=== PATIENT | male | born 1990 | race American Indian/Alaskan Native ===

== ENCOUNTER 2019-09-08 20:42 | Emergency (ER) | payer SELFPAY ==
[2019-09-08 23:37] LABS: Basophils # (Auto) 0.1 K/mm3 (0.0-0.1); Basophils % (Auto) 0.9 % (0.0-1.8); Eosinophils # (Auto) 0.1 K/mm3 (0.0-0.4); Eosinophils % (Auto) 1.4 % (0.0-4.3); Hematocrit 33.8 % (35.5-45.6); Hemoglobin 11.4 gm/dl (11.8-15.2); Lymphocytes # (Auto) 1.9 K/mm3 (1.2-5.4); Lymphocytes % (Auto) 27.8 % (13.4-35.0); Mean Corpuscular HGB Conc 34 % (32-34); Mean Corpuscular Volume 86 fl (84-94); Monocytes # (Auto) 0.9 K/mm3 (0.0-0.8); Monocytes % (Auto) 13.4 % (0.0-7.3); Platelet Count 277 K/mm3 (140-440); Red Blood Count 3.94 M/mm3 (3.65-5.03)
[2019-09-08 23:52] LABS: Bilirubin,Urine NEG (Negative); Blood,Urine NEG (Negative); Color,Urine Yellow (Yellow); Protein,Urine <15 mg/dL mg/dL (Negative); WBC,Urine < 1.0 /HPF (0.0-6.0)
[2019-09-09 00:04] LABS: Alanine Aminotransferase 11 units/L (7-56); Albumin 3.6 g/dL (3.9-5); BUN/Creatinine Ratio 10; Blood Urea Nitrogen 8 mg/dL (9-20); Calcium 8.8 mg/dL (8.4-10.2); Hemolysis Index 2
[2019-09-09] MEDS ORDERED: IBUPROFEN 800 MG TAB PO ONE (01:45)
--- NOTE | 2019-09-09 01:48 | Emergency Department Report ---
ED Abdominal Pain HPI - General Chief Complaint: Abdominal Pain Stated Complaint: ABDOMINAL PAIN Time Seen by Provider: 09/09/19 01:13 Source: patient Mode of arrival: Ambulatory Limitations: No Limitations - History of Present Illness Initial Comments: This is a 29-year-old male with a medical history of HIV on antivirals who presents who presents the ED complaining of right upper quadrant abdominal pain for the past 4 days. Patient states pain is usually sharp in nature. Is intermittent. Patient is also complaining of constipation and states his last bowel movement was earlier today. Patient denies nausea vomiting recent unusual food, dysuria fever, chills, MD Complaint: abdominal pain - Related Data Previous Rx's Medication Instructions Recorded Last Taken Type traMADoL [Ultram] 50 mg PO Q6HR PRN #10 tablet 04/21/16 Unknown Rx Dicyclomine [Bentyl] 10 mg PO TID #30 capsule 09/09/19 Unknown Rx Docusate Sodium [Colace] 100 mg PO BID PRN #30 capsule 09/09/19 Unknown Rx Allergies Allergy/AdvReac Type Severity Reaction Status Date / Time No Known Allergies Allergy Verified 04/21/16 00:20 ED Review of Systems ROS: Stated complaint: ABDOMINAL PAIN Other details as noted in HPI Comment: All other systems reviewed and negative ED Past Medical Hx - Past Medical History Previous Medical History?: Yes Hx HIV: Yes (ANTI-VIRALS) - Social History Smoking Status: Never Smoker Substance Use Type: None - Medications Home Medications: Home Medications Medication Instructions Recorded Confirmed Last Taken Type traMADoL [Ultram] 50 mg PO Q6HR PRN #10 tablet 04/21/16 Unknown Rx Dicyclomine [Bentyl] 10 mg PO TID #30 capsule 09/09/19 Unknown Rx Docusate Sodium [Colace] 100 mg PO BID PRN #30 capsule 09/09/19 Unknown Rx ED Physical Exam - General Limitations: No Limitations General appearance: alert, in no apparent distress - Head Head exam: Present: atraumatic, normocephalic - Eye Eye exam: Present: normal appearance - ENT ENT exam: Present: mucous membranes moist - Neck Neck exam: Present: normal inspection, full ROM - Respiratory Respiratory exam: Present: normal lung sounds bilaterally. Absent: respiratory distress - Cardiovascular Cardiovascular Exam: Present: regular rate, normal rhythm. Absent: systolic murmur, diastolic murmur, rubs, gallop - GI/Abdominal GI/Abdominal exam: Present: soft, tenderness (Mild tenderness to right upper quadrant, nontender on all other quadrants), normal bowel sounds. Absent: distended, guarding, rebound - Rectal Rectal exam: Present: deferred - Extremities Exam Extremities exam: Present: normal inspection - Back Exam Back exam: Present: normal inspection - Neurological Exam Neurological exam: Present: alert, oriented X3 - Psychiatric Psychiatric exam: Present: normal affect, normal mood - Skin Skin exam: Present: warm, dry, intact, normal color. Absent: rash ED Course Vital Signs 09/08/19 09/08/19 21:20 22:34 Temperature 99.9 F H 99.9 F H Pulse Rate 106 H 103 H Respiratory 18 18 Rate Blood Pressure 121/77 121/77 O2 Sat by Pulse 96 100 Oximetry ED Medical Decision Making - Lab Data Result diagrams: 09/08/19 23:15 09/08/19 23:15 Laboratory Last Values WBC 6.8 K/mm3 (4.5-11.0) 09/08/19 23:15 RBC 3.94 M/mm3 (3.65-5.03) 09/08/19 23:15 Hgb 11.4 gm/dl (11.8-15.2) L 09/08/19 23:15 Hct 33.8 % (35.5-45.6) L 09/08/19 23:15 MCV 86 fl (84-94) 09/08/19 23:15 MCH 29 pg (28-32) 09/08/19 23:15 MCHC 34 % (32-34) 09/08/19 23:15 RDW 14.0 % (13.2-15.2) 09/08/19 23:15 Plt Count 277 K/mm3 (140-440) 09/08/19 23:15 Lymph % (Auto) 27.8 % (13.4-35.0) 09/08/19 23:15 [place] % (Auto) 13.4 % (0.0-7.3) H 09/08/19 23:15 Eos % (Auto) 1.4 % (0.0-4.3) 09/08/19 23:15 Baso % (Auto) 0.9 % (0.0-1.8) 09/08/19 23:15 Lymph # 1.9 K/mm3 (1.2-5.4) 09/08/19 23:15 [place] # 0.9 K/mm3 (0.0-0.8) H 09/08/19 23:15 Eos # 0.1 K/mm3 (0.0-0.4) 09/08/19 23:15 Baso # 0.1 K/mm3 (0.0-0.1) 09/08/19 23:15 Seg Neutrophils % 56.5 % (40.0-70.0) 09/08/19 23:15 Seg Neutrophils # 3.8 K/mm3 (1.8-7.7) 09/08/19 23:15 Sodium 137 mmol/L (137-145) 09/08/19 23:15 Potassium 4.0 mmol/L (3.6-5.0) 09/08/19 23:15 Chloride 98.6 mmol/L (98-107) 09/08/19 23:15 Carbon Dioxide 26 mmol/L (22-30) 09/08/19 23:15 Anion Gap 16 mmol/L 09/08/19 23:15 BUN 8 mg/dL (9-20) L 09/08/19 23:15 Creatinine 0.8 mg/dL (0.8-1.5) 09/08/19 23:15 Estimated GFR > 60 ml/min 09/08/19 23:15 BUN/Creatinine Ratio 10 % 09/08/19 23:15 Glucose 124 mg/dL (75-100) H 09/08/19 23:15 Calcium 8.8 mg/dL (8.4-10.2) 09/08/19 23:15 Total Bilirubin 0.50 mg/dL (0.1-1.2) 09/08/19 23:15 AST 24 units/L (5-40) 09/08/19 23:15 ALT 11 units/L (7-56) 09/08/19 23:15 Alkaline Phosphatase 59 units/L (35-129) 09/08/19 23:15 Total Protein 8.3 g/dL (6.3-8.2) H 09/08/19 23:15 Albumin 3.6 g/dL (3.9-5) L 09/08/19 23:15 Albumin/Globulin Ratio 0.8 % 09/08/19 23:15 Lipase 29 units/L (13-60) 09/08/19 23:15 Urine Color Yellow (Yellow) 09/08/19 23:25 Urine Turbidity Clear (Clear) 09/08/19 23:25 Urine pH 7.0 (5.0-7.0) 09/08/19 23:25 Ur Specific [place] 1.016 (1.003-1.030) 09/08/19 23:25 Urine Protein <15 mg/dl mg/dL (Negative) 09/08/19 23:25 Urine Glucose (UA) Neg mg/dL (Negative) 09/08/19 23:25 Urine Ketones Neg mg/dL (Negative) 09/08/19 23: Urine Blood Neg (Negative) 09/08/19 23: Urine Nitrite Neg (Negative) 09/08/19 23: Urine Bilirubin Neg (Negative) 09/08/19 23: Urine Urobilinogen 4.0 mg/dL (<2.0) 09/08/19 23:25 Ur Leukocyte Esterase Neg (Negative) 09/08/19 23:25 Urine WBC (Auto) < 1.0 /HPF (0.0-6.0) 09/08/19 23:25 Urine RBC (Auto) 2.0 /HPF (0.0-6.0) 09/08/19 23:25 - Medical Decision Making This is a 29-year-old female male who presents with abdominal pain and constipation. All labs are within normal limits. Liver enzymes are elevated. This could be secondary to patient taking antivirals or indicate if gallstone. Due to the fact that there were no technical sales advisor in the ED department today. I discussed with patient will need to follow-up with GI tomorrow. GI referral was given to patient. Patient is sitting comfortably in the ED. There is no vomiting throughout ED. Discussed all findings with the patient. I discussed with patient to make sure he follows up. - Differential Diagnosis Gallstone, hepatitis, constipation, gastroenteritis Critical care attestation.: If time is entered above; I have spent that time in minutes in the direct care of this critically ill patient, excluding procedure time. ED Disposition Clinical Impression: Abdominal pain, Constipation Disposition: -01 TO HOME OR SELFCARE Is pt being admited?: No Does the pt Need Aspirin: No Condition: Stable Instructions: Non-Alcoholic Fatty Liver Disease (ED), Biliary Colic (ED), Cholecystitis (ED) Additional Instructions: Make sure to follow up with the primary care physician as well as GI as discussed. Take all your medications as you've been prescribed. If you have any worsening symptoms or develop new symptoms please return to ED immediately. Prescriptions: Dicyclomine [Bentyl] 10 mg PO TID #30 capsule Docusate Sodium [Colace] 100 mg PO BID PRN #30 capsule PRN Reason: Constipation Referrals: PRIMARY CARE, [Primary Care Provider] - 3-5 Days [facility] [Provider Group] - 3-5 Days [facility] [Provider Group] - 3-5 Days Forms: Accompanied Note, Work/School Release Form(ED) Time of Disposition: 01:54
[2019-09-09 02:15] VITALS: BP 103/72
== END 2019-09-09 02:21 | disposition home or self-care (01) ==
LOC: ED 20:42
DX: R10.11 Right upper quadrant pain (principal); K59.00 Constipation, unspecified
CPT/HCPCS: 36415; 80053; 81001; 83690; 85025

== ENCOUNTER 2021-08-02 12:24 | Emergency (ER) | payer SELFPAY ==
[2021-08-02 13:14] VITALS: BP 127/74
[2021-08-02 14:57] LABS: Hematocrit 36.1 % (35.5-45.6); Hemoglobin 11.3 gm/dl (11.8-15.2); Mean Corpuscular HGB Conc 31 % (32-34); Mean Corpuscular Volume 83 fl (84-94); Platelet Count 256 K/mm3 (140-440); Red Blood Count 4.36 M/mm3 (3.65-5.03); Red Cell Distribution Width 14.7 % (13.2-15.2)
--- NOTE | 2021-08-02 15:06 | Emergency Department Report ---
ED General Adult HPI - General Chief complaint: Nosebleed Stated complaint: NOSE BLEED Time Seen by Provider: 08/02/21 14:31 Source: patient Mode of arrival: Ambulatory Limitations: No Limitations - History of Present Illness Initial comments: Patient is a 31-year-old male presents emergency room complaints of a nosebleed that occurred yesterday. He has associated headache, diarrhea, generalized body aches. He denies any known sick contacts. He states that he just went to a conference in [place]. He has not been tested for COVID-19 since he started feeling sick. He denies any chest pain, shortness of breath, cough. Past medical history of HIV and states he has not been on his antivirals for a year and a half because he states he does not like how they make him feel but reports that he has an appointment today to get back on his medications. No allergies to medications. - Related Data Previous Rx's Medication Instructions Recorded Last Taken Type traMADoL [Ultram] 50 mg PO Q6HR PRN #10 tablet 04/21/16 Unknown Rx Dicyclomine [Bentyl] 10 mg PO TID #30 capsule 09/09/19 Unknown Rx Docusate Sodium [Colace] 100 mg PO BID PRN #30 capsule 09/09/19 Unknown Rx Fluticasone [Flonase] 1 spray NS QDAY #1 bottle 08/02/21 Unknown Rx Hyoscyamine Subl [Levsin Sl 0.125 0.125 mg SL Q6HR PRN #8 tab 08/02/21 Unknown Rx TAB] Naproxen 375 mg PO BID PRN #14 tab 08/02/21 Unknown Rx Allergies Allergy/AdvReac Type Severity Reaction Status Date / Time No Known Allergies Allergy Verified 08/02/21 13:14 ED Review of Systems ROS: Stated complaint: NOSE BLEED Other details as noted in HPI Comment: All other systems reviewed and negative ED Past Medical Hx - Past Medical History Hx HIV: Yes (ANTI-VIRALS) - Social History Smoking Status: Never Smoker Substance Use Type: None - Medications Home Medications: Home Medications Medication Instructions Recorded Confirmed Last Taken Type traMADoL [Ultram] 50 mg PO Q6HR PRN #10 tablet 04/21/16 Unknown Rx Dicyclomine [Bentyl] 10 mg PO TID #30 capsule 09/09/19 Unknown Rx Docusate Sodium [Colace] 100 mg PO BID PRN #30 capsule 09/09/19 Unknown Rx Fluticasone [Flonase] 1 spray NS QDAY #1 bottle 08/02/21 Unknown Rx Hyoscyamine Subl [Levsin Sl 0.125 0.125 mg SL Q6HR PRN #8 tab 08/02/21 Unknown Rx TAB] Naproxen 375 mg PO BID PRN #14 tab 08/02/21 Unknown Rx ED Physical Exam - General Limitations: No Limitations General appearance: alert, in no apparent distress - Head Head exam: Present: atraumatic, normocephalic - Eye Eye exam: Present: normal appearance - ENT ENT exam: Present: mucous membranes moist, other (mild edema of the nasal turbinates, no sinus ttp) - Respiratory Respiratory exam: Present: normal lung sounds bilaterally. Absent: respiratory distress, wheezes, rales, rhonchi, stridor, chest wall tenderness, accessory muscle use, decreased breath sounds, prolonged expiratory - Cardiovascular Cardiovascular Exam: Present: regular rate, normal rhythm, normal heart sounds. Absent: systolic murmur, diastolic murmur, rubs, gallop - Neurological Exam Neurological exam: Present: alert, oriented X3 - Psychiatric Psychiatric exam: Present: normal affect, normal mood - Skin Skin exam: Present: warm, dry, intact ED Course Vital Signs 08/02/21 13:13 Temperature 98.9 F Pulse Rate 100 H Respiratory 16 Rate Blood Pressure 127/74 [Left] O2 Sat by Pulse 100 Oximetry ED Medical Decision Making - Lab Data Result diagrams: 08/02/21 14:43 08/02/21 14:43 Lab Results 08/02/21 08/02/21 Range/Units 14:43 14:43 WBC 4.7 (4.5-11.0) K/mm3 RBC 4.36 (3.65-5.03) M/mm3 Hgb 11.3 L (11.8-15.2) gm/dl Hct 36.1 (35.5-45.6) % MCV 83 L (84-94) fl MCH 26 L (28-32) pg MCHC 31 L (32-34) % RDW 14.7 (13.2-15.2) % Plt Count 256 (140-440) K/mm3 [place] % (Auto) Product Development Worker Add Manual Diff Complete Total Counted 100 Seg Neuts % (Manual) 55.0 (40.0-70.0) % Band Neutrophils % 0 % Lymphocytes % (Manual) 24.0 (13.4-35.0) % Reactive Lymphs % (Man) 0 % Monocytes % (Manual) 20.0 H (0.0-7.3) % Eosinophils % (Manual) 0 (0.0-4.3) % Basophils % (Manual) 1.0 (0.0-1.8) % Metamyelocytes % 0 % Myelocytes % 0 % Promyelocytes % 0 % Blast Cells % 0 % Nucleated RBC % Not Reportable Seg Neutrophils # Man 2.6 (1.8-7.7) K/mm3 Band Neutrophils # 0.0 K/mm3 Lymphocytes # (Manual) 1.1 L (1.2-5.4) K/mm3 Abs React Lymphs (Man) 0.0 K/mm3 Monocytes # (Manual) 0.9 H (0.0-0.8) K/mm3 Eosinophils # (Manual) 0.0 (0.0-0.4) K/mm3 Basophils # (Manual) 0.0 (0.0-0.1) K/mm3 Metamyelocytes # 0.0 K/mm3 Myelocytes # 0.0 K/mm3 Promyelocytes # 0.0 K/mm3 Blast Cells # 0.0 K/mm3 WBC Morphology Not Reportable Hypersegmented Neuts Not Reportable Hyposegmented Neuts Not Reportable Hypogranular Neuts Not Reportable Smudge Cells Not Reportable Toxic Granulation Not Reportable Toxic Vacuolation Not Reportable Dohle Bodies Not Reportable Pelger-Huet Anomaly Not Reportable Carla Rods Not Reportable Platelet Estimate Consistent w auto Clumped Platelets Not Reportable Plt Clumps, EDTA Not Reportable Large Platelets Few Giant Platelets Not Reportable Platelet Satelliting Not Reportable Plt Morphology Comment Not Reportable RBC Morphology Not Reportable Dimorphic RBCs Not Reportable Polychromasia Not Reportable Hypochromasia 1+ Poikilocytosis Not Reportable Anisocytosis Not Reportable Microcytosis Not Reportable Macrocytosis Not Reportable Spherocytes Not Reportable Pappenheimer Bodies Not Reportable Sickle Cells Not Reportable Target Cells Not Reportable Tear Drop Cells Not Reportable Ovalocytes Not Reportable Helmet Cells Not Reportable Cotto-Teller Bodies Not Reportable [place] Rings Not Reportable Nabil Cells Not Reportable Bite Cells Not Reportable Crenated Cell Not Reportable Elliptocytes Not Reportable Acanthocytes (Spur) Not Reportable Rouleaux Not Reportable Hemoglobin C Crystals Not Reportable Schistocytes Not Reportable Malaria parasites Not Reportable Alden Bodies Not Reportable Hem Pathologist Commnt No Sodium 137 (137-145) mmol/L Potassium 3.3 L (3.6-5.0) mmol/L Chloride 101.6 (98-107) mmol/L Carbon Dioxide 24 (22-30) mmol/L Anion Gap 15 mmol/L BUN 8 L (9-20) mg/dL Creatinine 0.8 (0.8-1.3) mg/dL Estimated GFR > 60 ml/min BUN/Creatinine Ratio 10 % Glucose 100 (75-100) mg/dL Calcium 8.8 (8.4-10.2) mg/dL Total Bilirubin 0.30 (0.1-1.2) mg/dL AST 22 (5-40) units/L ALT 12 (7-56) units/L Alkaline Phosphatase 64 (35-129) units/L Total Protein 9.1 H (6.3-8.2) g/dL Albumin 3.2 L (3.9-5) g/dL Albumin/Globulin Ratio 0.5 % - Radiology Data Radiology results: report reviewed Ordering Physician: LITZY GEE Date of Service: 08/02/21 Procedure(s): XR chest routine 2V Accession Number(s): [id number] cc: LITZY GEE Fluoro Time In Minutes: CHEST 2 VIEWS INDICATION / CLINICAL INFORMATION: URI symptoms, hx of HIV off meds. COMPARISON: None available. FINDINGS: SUPPORT DEVICES: None. HEART / MEDIASTINUM: No significant abnormality. LUNGS / PLEURA: No significant pulmonary or pleural abnormality. No pn eumothorax. ADDITIONAL FINDINGS: No significant additional findings. IMPRESSION: 1. No acute findings. Signer Name: Mark Brantley MD Signed: 08/02/2021 3:50 PM Workstation Name: [id number] Transcribed By: FREDDY Dictated By: Mark Brantley MD Electronically Authenticated By: Mark Brantley MD Signed Date/Time: 08/02/21 155 DD/ 49 TD/TT: - Medical Decision Making Patient is a 31-year-old male presents emergency room complaints of a nosebleed that occurred yesterday. He has associated headache, diarrhea, generalized body aches. He denies any known sick contacts. He states that he just went to a conference in [place]. He has not been tested for COVID-19 since he started feeling sick. He denies any chest pain, shortness of breath, cough. Past medical history of HIV and states he has not been on his antivirals for a year and a half because he states he does not like how they make him feel but reports that he has an appointment today to get back on his medications. No allergies to medications. vitals are stable. on exam: mild edema of the nasal turbinates, no sinus ttp, breath sounds are clear bilaterally, no w/r/r. CXR: 1. No acute findings. Labs with mild hypokalemia, given K-Dur, otherwise labs are stable. Discussed all findings with patient. Stressed the importance of getting back on his antivirals for his HIV. Symptoms could be related to a URI. Could also be having side effects from not being on his antivirals. Advised patient Please take medication as prescribed as needed. Increase your fluid intake. May use a vaporizer. May use nasal saline spray. Follow-up with your primary care doctor. Please follow-up with your doctor and get back on your medications. Return to emergency room for any new or worsening symptoms. Recommend outpatient COVID-19 testing and if positive will need to self quarantine 5 days from onset of symptoms followed by 5 days of strict mask wearing according to CDC. Critical care attestation.: If time is entered above; I have spent that time in minutes in the direct care of this critically ill patient, excluding procedure time. ED Disposition Clinical Impression: Epistaxis, Hypokalemia URI (upper respiratory infection) Qualifiers: URI type: unspecified URI Qualified Code(s): J06.9 - Acute upper respiratory infection, unspecified Disposition: 01 HOME / SELF CARE / HOMELESS Is pt being admited?: No Does the pt Need Aspirin: No Condition: Stable Instructions: Nosebleed, [id number], Viral Respiratory Infection Additional Instructions: Please take medication as prescribed as needed. Increase your fluid intake. May use a vaporizer. May use nasal saline spray. Follow-up with your primary care doctor. Please follow-up with your doctor and get back on your medications. Return to emergency room for any new or worsening symptoms. Recommend outpatient COVID-19 testing and if positive will need to self quarantine 5 days from onset of symptoms followed by 5 days of strict mask wearing according to CDC. Prescriptions: Fluticasone [Flonase] 1 spray NS QDAY #1 bottle Hyoscyamine Subl [Levsin Sl 0.125 TAB] 0.125 mg SL Q6HR PRN #8 tab PRN Reason: diarrhea Naproxen 375 mg PO BID PRN #14 tab PRN Reason: pain Referrals: PRIMARY CARE, [Primary Care Provider] - 2-3 Days Time of Disposition: 16:07 Print Language: SLOVENIAN
[2021-08-02 15:19] LABS: Alanine Aminotransferase 12 units/L (7-56); Albumin 3.2 g/dL (3.9-5); BUN/Creatinine Ratio 10; Blood Urea Nitrogen 8 mg/dL (9-20); Calcium 8.8 mg/dL (8.4-10.2); Hemolysis Index 4
[2021-08-02] MEDS ORDERED: POTASSIUM CHLORIDE ER 20 MEQ TAB PO ONE (15:23)
[2021-08-02 15:54] LABS: Eosinophils % (Manual) 0 % (0.0-4.3); Hypochromasia 1+; Large Platelets Few; Platelet Estimate Consistent w Auto; Total Cells Counted 100
--- NOTE | 2021-08-02 15:54 | XRay Report ---
CHEST 2 VIEWS INDICATION / CLINICAL INFORMATION: URI symptoms, hx of HIV off meds. COMPARISON: None available. FINDINGS: SUPPORT DEVICES: None. HEART / MEDIASTINUM: No significant abnormality. LUNGS / PLEURA: No significant pulmonary or pleural abnormality. No pneumothorax. ADDITIONAL FINDINGS: No significant additional findings. IMPRESSION: 1. No acute findings. Signer Name: Mark Brantley MD Signed: 08/02/2021 3:50 PM Workstation Name: [email or web address]
== END 2021-08-02 16:23 | disposition home or self-care (01) ==
LOC: ED 12:24
DX: J06.9 Acute upper respiratory infection, unspecified (principal); R04.0 Epistaxis; E87.6 Hypokalemia
CPT/HCPCS: 36415; 71046; 80053; 85007; 85025; 99283